=== PATIENT | male | born 1960 | race Caucasian/White ===

== ENCOUNTER → 2020-07-07 | Day surgery (SDC) | payer OTHER ==
[~2020-07-07] MED LIST: CIPRO500 MG PO; ELIQUIS5 MG PO; FENOFIBRATE160 MG PO; LISINOPRIL 10MG10 MG PO; NORCO 5-325 TA1 EACH PO; PREDNISONE 20MG20 MG PO; XTANDI40 MG PO; ZOCOR40 MG PO; ZOFRAN4 MG PO
[2020-07-07 07:46] LABS: HCT 34.8 % (42.0-52.0); HGB 11.9 g/dl (13.2-18.0); MCH 31.2 pg (25.0-31.0); MCHC 34.2 g/dL (32.0-36.0); MCV 91.3 fL (78.0-100.0); MPV 9.1 fL (6.0-9.5); RBC 3.81 M/uL (4.70-6.00); WBC 4.8 K/uL (4.0-10.5)
[2020-07-07 08:04] LABS: ALBUMIN 4.4 g/dL (3.4-5.0); BILIRUBIN - TOTAL 0.5 mg/dL (0.2-1.0); BUN/CREAT RATIO (CALC) 14.4 RATIO; CREATININE 0.97 mg/dL (0.67-1.17); GLOBULIN (CALCULATION) 3.6 g/dL; POTASSIUM 4.7 mmol/L (3.5-5.1)
== END | disposition home or self-care (01) ==
LOC: FAS 06:50
PROVIDERS: Surgery
DX: D64.9 Anemia, unspecified (principal); K62.5 Hemorrhage of anus and rectum; K62.89 Other specified diseases of anus and rectum; M19.90 Unspecified osteoarthritis, unspecified site; I10 Essential (primary) hypertension; C61 Malignant neoplasm of prostate; E78.00 Pure hypercholesterolemia, unspecified; E78.5 Hyperlipidemia, unspecified; E66.3 Overweight; I87.2 Venous insufficiency (chronic) (peripheral); Z87.891 Personal history of nicotine dependence; Z20.822 Contact with and (suspected) exposure to COVID-19
CPT/HCPCS: 36415; 80053; J1100; J2250; J2704; J7120